=== PATIENT | female | born 1970 | race Caucasian/White ===

== ENCOUNTER 2021-03-03 10:22 | Emergency (ER) | payer BC, SELFPAY ==
--- NOTE | 2021-03-03 11:49 | ED.URI ---
HPI - URI/Sore Throat General Chief Complaint: Upper Respiratory Infection Stated Complaint: Congestion/Ear Pain Time Seen by Provider: 03/03/21 11:49 Source: patient, RN notes reviewed and old records reviewed Mode of arrival: ambulatory Limitations: no limitations History of Present Illness HPI Narrative: 50 year old female who presents to [facility] care with complaints of 6 day history of sinus congestion, sneezing and some sinus drainage with intermittent left ear pain. She states that she thought she was getting better till last night her left ear became very painful and throbbing with pain she rated as 8/10. Patient reports that she has been taking Tylenol, Ibuprofen allergy nasal spray and Benadryl for her symptoms. She repots that she has had COVID vaccinations Related Data Home Medications Medication Instructions Recorded Confirmed sertraline 100 mg PO BID 03/03/21 03/03/21 sucralfate 1 g PO BID 03/03/21 03/03/21 Allergies Allergy/AdvReac Type Severity Reaction Status Date / Time No Known Allergies Allergy Verified 03/03/21 10:56 Review of Systems Review of Systems: CONSTITUTIONAL: Denies acute fever, chills, or sweats. EYES: Denies visual changes, redness, or discharge. ENT: Positive for rhinorrhea, congestion,no sore throat, left otalgia. CARDIOVASCULAR: Denies chest pain, palpitations, or edema. RESPIRATORY: Denies cough or dyspnea. GASTROINTESTINAL: Denies abdominal pain, nausea, vomiting, or diarrhea. GENITOURINARY: Denies dysuria or hematuria. SKIN: Denies rash or itching. MUSCULOSKELETAL: Denies back pain, joint pain, or myalgia. NEUROLOGIC: Denies headache, numbness, or weakness. PSYCHIATRIC: Positive for history of anxiety or depression. All systems reviewed & are unremarkable except as noted in HPI and below PMFSH Past Medical History Medical History (Updated 03/04/21 @ 16:41 by Reva Griffin NP) Anxiety and depression GERD (gastroesophageal reflux disease) Surgical History Surgical History (Updated 03/04/21 @ 16:35 by Reva Griffin NP) H/O foot surgery left History of carpal tunnel release right History of left oophorectomy Hx of appendectomy Hx of cholecystectomy Previous section Status post surgical removal of both fallopian tubes Social History Social History (Updated 03/04/21 @ 16:37 by TRAVIS Chawla Smoking status: Never smoker Alcohol intake: unknown Substance use: never Gender identity (if verbalized by the patient): Female Comments At time of signature, agree with nursing past medical, surgical, social and family history. There is no relevant family history pertinent to the presenting complaint Exam Narrative: GENERAL: Well-appearing, well-nourished, and in no acute distress. HEAD: Normocephalic, atraumatic. EYES: PERRLA and EOMI. ENT: Nares red with clear rhinorrhea no epistaxis. Mucous membranes moist.Left TM red and bulging with dull light reflex, Right Tm normal with good light reflex, throat mild redness with no lesions exudates, or tonsil enlargement NECK: Supple.no lymphadenopathy CHEST: Clear to auscultation. No respiratory distress.SAO2 99% on room air HEART: Regular rate and rhythm. No murmur heard. Normal peripheral pulses. ABDOMEN: Soft, nontender, nondistended, normal active bowel sounds. EXTREMITIES: Normal range of motion. No edema. SKIN: Warm, dry, no rash. NEURO: No focal deficits. Alert and oriented x3. MDM - URI/Sore Throat Differential Diagnosis Differential diagnosis: Likely upper respiratory infection, otitis media, viral infection and pharyngitis Medical Records Attestation: I reviewed the patient's medical records. Critical Care Time Critical Care Time Critical Care Time: No Discharge Plan Discharge Clinical Impression: Otitis media Qualifiers: Otitis media type: serous Chronicity: acute Laterality: left Recurrence: non-recurrent Qualified Code(s): H65.02 - Acute serous otitis media, left ear Upper r
== END 2021-03-03 12:09 | disposition home or self-care (01) ==
PROVIDERS: Emergency Provider Registered Nurse
DX: H65.02 Acute serous otitis media, left ear (principal); J06.9 Acute upper respiratory infection, unspecified
CPT/HCPCS: 99213; G0463